=== PATIENT | male | born 1955 | race Caucasian/White ===

== ENCOUNTER 2017-10-13 10:38 | Emergency (ER) | payer SELFPAY ==
[2017-10-13 12:30] LABS: Bilirubin Negative (Negative); Blood, Urine Negative (Negative); Glucose, Urine (Dipstick) Negative (Negative); Ketone, Urine Negative (Negative); Nitrite Negative (Negative); Protein, Urine (Dipstick) Negative (Neg-Trace); Urobilinogen 0.2 mg/dL (0.2-1.0)
[2017-10-13 12:31] LABS: #Eosinphils 0.3 thou/uL (0.0-0.7); #Lymphocytes 2.1 thou/uL (1.20-3.40); #Monocytes 0.8 thou/uL (0.11-0.59); #Neutrophils 5.8 thou/uL (1.40-6.50); %Basophils 0.2 % (0.0-1.0); %Eosinophils 3.4 % (0.0-10.0); %Lymphocytes 23.5 % (21.0-51.0); %Monocytes 8.8 % (0.0-10.0); Hematocrit 45.4 % (42.0-52.0); Mean Platelet Volume 6.3 fL (7.4-10.4); Red Blood Cell (RBC) Count 4.78 mill/uL (4.70-6.10)
[2017-10-13 12:37] LABS: Anion Gap 13 mmol/L (10-20); BUN (Urea Nitrogen) 21 mg/dL (8.4-25.7); Calc. Creatinine Clearance 0 mL/min (70-130); Calcium 9.9 mg/dL (7.8-10.44); Carbon Dioxide 25 mmol/L (23-31); Chloride 98 mmol/L (98-107); Estimated GFR-MDRD 49
== END 2017-10-13 12:40 | disposition home or self-care (01) ==
LOC: ERS 10:38
DX: N13.2 Hydronephrosis with renal and ureteral calculous obstruction (principal); E11.9 Type 2 diabetes mellitus without complications; I10 Essential (primary) hypertension; F17.210 Nicotine dependence, cigarettes, uncomplicated
CPT/HCPCS: 80048; 81003; 85025; 99406

== ENCOUNTER 2019-02-03 16:59 | Inpatient (IN) | payer MEDICARE ==
[2019-02-03] MEDS ORDERED: Acetaminophen 500 MG TAB ONE (19:31)
[2019-02-03] MEDS ORDERED: Ondansetron ODT 8 MG TAB ONE (21:12)
[2019-02-04] MEDS ORDERED: Ondansetron PF 4 MG/2 ML Vial IVP PRN (05:52)
[2019-02-04] MEDS ORDERED: Ondansetron ODT 4 MG TAB SL PRN (05:52)
[2019-02-04] MEDS ORDERED: Acetaminophen 325 MG TAB PO PRN (05:52)
[2019-02-04 06:25] VITALS: BMI 36.6
[2019-02-04] MEDS ORDERED: Insulin Regular 300 UNITS/3 ML VIAL SC PRN (08:09)
[2019-02-04] MEDS ORDERED: Labetalol HCl 100 MG/20 ML VIAL SLOW IVP PRN (08:09)
[2019-02-04] MEDS: Enoxaparin Sodium 40 MG/0.4 ML SYRINGE SC SCH ×2 (09:01→09:06)
[2019-02-04] MEDS: Aspirin 325 mg Enteric Coated Tablet PO SCH (09:01)
[2019-02-04] MEDS: Pioglitazone HCl 15 MG TAB PO SCH (09:01)
--- NOTE | 2019-02-04 13:03 | HP ---
HISTORY OF PRESENT ILLNESS: The patient is a 63-year-old male who is new to me. I have seen his as a patient. He had been willing to transfer his care to [place]. Apparently, he was seen in [place] emergency room with mental status change, he was brought there. Family reports he had right-sided weakness and aphasia which improved. The patient still had trouble finding words. He was brought to [facility] due to photophobia, flashes of light. The patient was found to be hypertensive. He reported a recent illness of URI and allergy that had been treated there as well as a history of heat stroke that had been previously treated. The patient is alert and oriented to time, place, by the time he got to [facility] and continued to exhibit areas of word confusion, not being able to find the word he wanted to say, but still remained alert, oriented x3. He did not note any head trauma. He apparently had a CT scan done there, which was normal. Otherwise, no other medical complaints. ALLERGIES: NO KNOWN ALLERGIES. CURRENT MEDICATIONS: 1. Glyburide 6 mg daily. 2. Pioglitazone 15 mg daily. 3. Gabapentin 100 mg daily. 4. Enalapril 10 mg daily. PAST MEDICAL HISTORY: Positive for type 2 diabetes mellitus. He has had history of a Manning's palsy, apparently myocardial infarction, kidney stones, hypertension. 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 PAST SURGICAL HISTORY: Positive for back surgery, multiple orthopedic surgeries, kidney stone removal. SOCIAL AND PERSONAL HISTORY: He is . He does smoke. He does not drink alcohol. FAMILY HISTORY: Not obtainable at this time. PHYSICAL EXAMINATION: VITAL SIGNS: His a.m. vital signs, temperature 98.1, pulse 74, BP 137/90, respirations 18, O2 sats 95%. GENERAL: He is alert and active, in no distress, he recognizes me. He is oriented to person, place, and time. He does seem to have some difficulty recalling words, has significant long pauses when searching for words. Otherwise, no other medical issues noted. HEENT: Otherwise unremarkable. NECK: Supple. Full range of motion. No masses. LUNGS: Clear. HEART: Reveals a regular rate and rhythm. No murmurs, gallops, or rubs. ABDOMEN: Soft and nontender. Bowel sounds are present and active. There is no hepatosplenomegaly noted. LABORATORY DATA: His glucose is 191. Troponin less than 0.1. I do not have access to his [place] records at this time, but apparently they were normal. IMPRESSION: This is a 63-year-old male who is now placed in observation for rule out transient ischemic attack and stroke protocol. PLAN: He apparently has had a CT scan done. We will go and proceed with MRI scan of the brain today, keep him on anti-stroke precautions. Job ID: [id number]
--- NOTE | 2019-02-04 15:51 | CT ---
CT BRAIN WITHOUT CONTRAST: HISTORY: TIA. Expressive aphasia. COMPARISON: Exam from the previous day. FINDINGS: Postop changes in the right parietal occipital region are again seen. No evidence of acute infarct, hemorrhage, midline shift, or abnormal extraaxial fluid collections is seen. The ventricular size is appropriate, and the basilar cisterns are patent. No acute calvarial abnormalities are identified. There is mucosal disease in the paranasal sinuses. IMPRESSION: Stable examination. No CT evidence of acute intracranial process. POS: [facility]
--- NOTE | 2019-02-04 17:33 | ULT ---
CAROTID ULTRASOUND WITH JUAREZ SCALE AND DOPPLER DUPLEX COLOR FLOW IMAGING SPECTRAL ANALYSIS PERFORMED: 02/04/19 CLINICAL INDICATION: TIA/stroke, expressive aphasia. FINDINGS: There is scattered mild atherosclerotic calcification of the carotid arteries. PEAK SYSTOLIC VELOCITY (CM/S): Right CCA 92 Left CCA 92 Right ICA 74 Left ICA 90 There is antegrade flow within the visualized left vertebral arteries. The right vertebral artery is not reliably evaluated. IMPRESSION: 1. No hemodynamically significant stenosis of the right internal carotid artery. 2. No hemodynamically significant stenosis of the left internal carotid artery. 3. Indeterminate flow of the suboptimally visualized right vertebral artery. Recommend clinical javier elation to exclude evidence of vertebrobasilar insufficiency. As necessary brain MRI may be obtained if necessary. POS: [facility]
[2019-02-04] MEDS ORDERED: Gabapentin 100 MG CAP PO SCH (21:00)
[2019-02-04] MEDS ORDERED: Rosuvastatin 20 MG TAB PO SCH (21:00)
[2019-02-05 06:30] LABS: Cardiac Risk 4.5 (Less than 4.5)
[2019-02-05 07:51] VITALS: BP 146/77; TEMP 97.8
[2019-02-05] MEDS: Pioglitazone HCl 15 MG TAB PO SCH (08:13)
[2019-02-05] MEDS: Enoxaparin Sodium 40 MG/0.4 ML SYRINGE SC SCH (08:15)
[2019-02-05] MEDS: Aspirin 325 mg Enteric Coated Tablet PO SCH (08:15)
--- NOTE | 2019-02-05 23:56 | DIS ---
DATE OF ADMISSION: 02/04/2019 DATE OF DISCHARGE: 02/05/2019 PRIMARY CARE PHYSICIAN: Christie Durbin MD. However, the patient is attempting to transition to Dr. Benny Hills, his spouse sees. CHIEF COMPLAINT: Altered mental status. HISTORY OF PRESENT ILLNESS: The patient is having acute onset of difficulty of word finding suspected CVA, presented to the emergency department with [place] and was transferred to [place] for higher level of care with neurology consultation. 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 No reported deficits from prior AV malformation repair and destruction. The patient without any hemorrhagic component on CT of head x2. The patient refused to go into MRI, refused sedation protocol for MRI. The patient states he wants to go through an open air MRI and his chief concern is finances. He states that he does not want to wait for official read on carotid Doppler, although that is back prior to discharge. Does not want to wait for completion of echo and does not want to wait for neurologists as every day he is here, he is being charged money. He is interested in starting a statin medication to help in addition to aspirin and his home enalapril for secondary prevention. The patient does want to complete neurology consultation, MRI, echo on an outpatient basis. Verbalized understanding regarding incomplete workup this hospitalization and potential health risks if we are missing part of the puzzle such as recurrence or extension of prior AV malformation site. DISCHARGE MEDICATIONS: Include: 1. Enalapril 10 mg. 2. Gabapentin 100 mg at bedtime. 3. Glyburide 6 mg p.o. b.i.d. 4. Actos 15 mg one tab p.o. daily. 5. Full-dose aspirin 325 mg one tab daily. 6. Rosuvastatin 20 mg one tab p.o. at bedtime. FOLLOWUP: The patient should follow up with PCP within 1 week or establish with Dr. Benny Hills as proposed for ordering outpatient testing. Instructed patient about wait times for local neurologist, likely will be greater than his personal neurologist in [place] and to follow up accordingly. He verbalized understanding, was ambulatory prior to discharge. Having no difficulty with swallowing. Using restroom well. No acute complaints other than word-finding issues, which are continued. DISCHARGE DISPOSITION: The patient discharged home in fair condition. DISCHARGE DIET: Heart healthy and ADA consistent carb. Job ID: [id number]
== END 2019-02-05 09:10 | disposition home or self-care (01) | DRG 69 ==
LOC: ERS 16:59 → ERHOLD 20:21 → 2SW 02-04 05:54 → OBSVTOIN 02-04 16:11 → 2SE 02-04 17:42
PROVIDERS: ADMIT Family Medicine; ATTEND Family Medicine
DX: G45.9 Transient cerebral ischemic attack, unspecified (principal); E11.9 Type 2 diabetes mellitus without complications; I10 Essential (primary) hypertension; F17.200 Nicotine dependence, unspecified, uncomplicated
CPT/HCPCS: 36415; 36416; 70450; 80061; 93005; 93880; J1650; J1815

== ENCOUNTER → 2021-03-07 | Day surgery (SDC) | payer MEDICARE ==
[2021-03-05 14:39] VITALS: BMI 38.1
[2021-03-07 08:08] VITALS: BP 154/74; TEMP 98.2
== END ==
LOC: RAD 07:07
PROVIDERS: ATTEND Neurological Surgery
PROC: B02B1ZZ Computerized Tomography (CT Scan) of Spinal Cord using Low Osmolar Contrast (ICD-10-PCS; principal; 2021-03-07)
DX: M51.16 Intervertebral disc disorders with radiculopathy, lumbar region (principal); M48.061 Spinal stenosis, lumbar region without neurogenic claudication; M43.16 Spondylolisthesis, lumbar region; M25.78 Osteophyte, vertebrae; N20.0 Calculus of kidney; E11.40 Type 2 diabetes mellitus with diabetic neuropathy, unspecified; I10 Essential (primary) hypertension; I25.10 Atherosclerotic heart disease of native coronary artery without angina pectoris; I25.2 Old myocardial infarction; F17.210 Nicotine dependence, cigarettes, uncomplicated; G47.33 Obstructive sleep apnea (adult) (pediatric); Z79.82 Long term (current) use of aspirin; Z79.84 Long term (current) use of oral hypoglycemic drugs; Z79.899 Other long term (current) drug therapy; Z86.73 Personal history of transient ischemic attack (TIA), and cerebral infarction without residual deficits
CPT/HCPCS: 72132; 77002